=== PATIENT | female | born 1950 | race Caucasian/White ===

== ENCOUNTER 2020-03-15 22:18 | Outpatient (REF) | payer MEDICARE, MEDICAID, SELFPAY ==
[2020-03-15 22:16] LABS: ALT 26 U/L (14-59); AST 24 U/L (15-37); Albumin 4.2 g/dL (3.4-5.0); Alkaline Phosphatase 145 U/L (46-116); Bilirubin, Direct 0.09 mg/dL (0.00-0.20); Bilirubin, Total 0.5 mg/dL (0.2-1.0); Total Protein 7.8 g/dL (6.4-8.2)
[2020-03-15 22:19] LABS: Hemoglobin A1C 5.7 % (3.8-5.6)
[2020-03-15 22:30] LABS: Calculated LDL 170 mg/dL (<100); Cholesterol 258 mg/dL (<200); HDL Cholesterol 76 mg/dL (40-60); Triglyceride 61 mg/dL (<150)
== END 2020-03-15 22:38 ==
LOC: NCHCN 22:18
PROVIDERS: Visit Provider Registered Nurse
DX: R73.09 Other abnormal glucose (principal); E78.89 Other lipoprotein metabolism disorders; J44.9 Chronic obstructive pulmonary disease, unspecified
CPT/HCPCS: 80061; 80076; 83036

== ENCOUNTER 2020-11-29 14:06 | Outpatient (REF) | payer MEDICARE, MEDICAID, SELFPAY | END 2020-11-29 14:07 | disposition home or self-care (01) | LOC: NCHCN 14:06 | PROVIDERS: Visit Provider Registered Nurse | DX: R35.0 Frequency of micturition (principal) | CPT/HCPCS: 87086 ==

== ENCOUNTER 2021-04-17 13:03 | Outpatient (REF) | payer MEDICARE, MEDICAID, SELFPAY ==
[2021-04-19 00:49] LABS: COVID-19 RT-PCR UVMMC Result Negative (Negative)
== END 2021-04-17 13:04 | disposition home or self-care (01) ==
LOC: NCHCN 13:03
PROVIDERS: Visit Provider Nurse Practitioner Community Health
DX: Z20.822 Contact with and (suspected) exposure to COVID-19 (principal); R06.02 Shortness of breath
CPT/HCPCS: U0003; U0005

== ENCOUNTER 2021-08-12 14:46 | Outpatient (REF) | payer MEDICARE, MEDICAID, SELFPAY ==
[2021-08-12 16:50] LABS: Anion Gap 2.1 mmol/L (3-11); BUN 20 mg/dL (7-18); CO2 36.9 mmol/L (21.0-32.0); CREATININE 0.7 mg/dL (0.55-1.02); Calcium 8.5 mg/dL (8.5-10.1); Chloride 104 mmol/L (98-107); Glucose 190 mg/dL (74-106); Potassium 3.8 mmol/L (3.5-5.1); Sodium 143 mmol/L (136-145)
== END 2021-08-12 14:47 | disposition home or self-care (01) ==
LOC: LBN 14:46
PROVIDERS: Visit Provider Registered Nurse
DX: R60.0 Localized edema (principal)
CPT/HCPCS: 80048